=== PATIENT | female | born 1965 | race Caucasian/White ===

== ENCOUNTER 2016-09-26 13:50 | Emergency (ER) | payer SELFPAY ==
[~2016-09-26 13:50] MED LIST: ESTRACE1 MG PO; XANAX1 MG PO
== END 2016-09-26 14:30 | disposition home or self-care (01) ==
LOC: ER 13:50
DX: L30.9 Dermatitis, unspecified (principal); Z79.899 Other long term (current) drug therapy
CPT/HCPCS: 99282